=== PATIENT | female | born 2000 | race Caucasian/White ===

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

== ENCOUNTER 2022-01-07 11:24 | Outpatient (RCR) | payer BC, SELFPAY ==
--- NOTE | 2022-01-07 09:00 | BH.SGPN.GN ---
Behaviors/Verbalizations/Mental Status: []Pt alert and oriented, casually dressed and groomed. Eye contact good, motor activity appropriate, speech within normal limits. Affect, congruent. Mood, anxious. Thoughts linear, logical, no signs of hallucinations or delusions. Pt completed the CSSR-S this morning, denies active SI. client Response/Progress/Benefit: P[]Pt responded well to session, engaged and interacting with peers. Pt's first day of IOP tx and pt reports feeling anxious. Pt receptive to feedback from peers on advice about the program and encouragement. Pt stated she has been struggling with her mental health for a while now and she is ready to feel better. Pt reports she wants to work on reducing depression and anxiety and finding coping skills. Pt stated I overthink everything and pt wants to be able to live her life without having such negative thinking. Appeared to benefit from group support and feedback. Will continue IOP tx to prevent decompensation, gain healthy coping skills, and maintain safety. Narrative Note: []
--- NOTE | 2022-01-07 10:10 | BH.SGPN.GN ---
Behaviors/Verbalizations/Mental Status: [] Eye contact is good. Motor activity is appropriate. Appearance is disheveled. Speech is Appropriate. Mood is anxious. Affect is congruent. Thoughts are linear and logical. No evidence of psychosis. Client Response/Progress/Benefit: [] Pt was an active participant in group discussion and activity. Attentive during psychoeducation on social stigma vs self-stigma. Pt was actively involved in interactive discussion on the question of What impacts how we define and view ourselves? Pt along with peers were able to identify several aspects that impact how we view ourselves which include; society, past experiences, upbringing, guilt over past actions, shame, what we tell ourselves, actions, and our roles (i.e. mother, father, unemployed, crazy). Pt also participated in identifying examples of social stigma for mental health illness which included too sensitive, looking for attention, overly emotional, psycho, crazy, just an excuse, not working hard enough, lazy, mental health is not real, just a pessimist, and mental health can just be turned off. Benefited from increased awareness of how mental health stigma can impact individuals and treatment. Plan is to continue in IOP to maintain safety, prevent decompensation, and stabilize mood. Narrative Note: []
--- NOTE | 2022-01-07 11:10 | BH.SGPN.GN ---
Behaviors/Verbalizations/Mental Status: []Client alert and oriented, casually dressed and groomed. Eye contact fair. Motor activity appropriate. Speech within normal limits. Affect constricted, mood depressed and anxious. Thoughts linear, logical, no signs of hallucinations or delusions. Client Response/Progress/Benefit: []Client engaged participant AEB client participating in the activity, providing some input during small group discussion, and listening attentively to others. Client appeared to connect with discussion about what stigma has kept her from doing. Group brainstormed strategies to combat social and perceived stigma. Client shared one thing she can personally do to combat stigma is to remind self to ask self if what others are saying is a fact or an opinion. Client stated she wants to believe in herself more instead of jumping to believing what others have to say. Appeared to benefit from increasing awareness of strategies to combat stigma. Will continue IOP tx to improve daily functioning, increase healthy coping and prevent decompensation.
--- NOTE | 2022-01-07 14:00 | BH.COMM_ITS ---
Communication Note - Communication with Client Communication Note: Completed initial paperwork. No significant changes since pre-admission screening. Completed [facility]. Denies SI with plan or intent in the past 4 week. Case discussed with Dr. Olmedo AT 902A with plan to admit to [facility] level of care with dx of F33.2
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
--- NOTE | 2022-01-09 11:10 | BH.SGPN.GN ---
Behaviors/Verbalizations/Mental Status: []Client alert and oriented, disheveled appearance. Eye contact good. Motor activity appropriate. Speech interrupting at times and engaging in side conversations. Affect constricted, mood dysthymic. Thoughts linear, logical, no signs of hallucinations or delusions. Client Response/Progress/Benefit: []Client engaged participant AEB client taking notes during discussion. Attentive throughout group discussion on the various areas of self-care, benefits, and types of self-care activities for each area. Client completed worksheet which identified current self-care practices and what self-care activities client wants to start using. Client selected emotional self-care as the area of self-care client would like to improve. Client plans to do this by making a playlist for her moods and using opposite action when she wants to use unhealthy skills. Client reports she is doing well with psychological self-care. Appeared to benefit from completing the self-care evaluation and gaining insights into current self-care practices, as well as identifying areas in which she would like to improve upon. Will continue IOP tx to prevent decompensation, gain healthy coping skills, and improve daily functioning. Narrative Note: []
[2022-01-09 11:21] VITALS: BP 113/77; PULSE 71
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
--- NOTE | 2022-01-09 12:39 | BH.DR.ITP ---
Initial Treatment Plan Patient Information Visit Information: ADMISSION DATE: EXPECTED LOS: 4-6 weeks Problems/Symptoms Problem #1:: Mood instability Symptom:: Depression, crying, sadness, isolation, low energy, fatigue, hopelessness, worthlessness Symptom:: Mood fluctuations with occasional grandiose thinking and bursts of energy and decreased sleep without fatigue, impulsive it he Problem #2:: Anxiety Symptom:: Worry, rumination, panic attacks, flashbacks, avoidance, dissociation
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
--- NOTE | 2022-01-11 10:15 | BH.SGPN.GN ---
Behaviors/Verbalizations/Mental Status: []Client alert and oriented, casually dressed and groomed. Eye contact good. Motor activity appropriate. Speech within normal limits. Affect constricted, mood anxious and depressed. Thoughts linear, logical, no signs of hallucinations or delusions. Client Response/Progress/Benefit: []Pt was an active participant in group discussion and activity. Attentive during psychoeducation on coping skills and gave examples of unhealthy coping skills shut as creating arguments on purpose, shutting down, and self-sabotage by pushing supports away. Benefited from increased understanding of unhealthy coping skills and the need for developing healthy interna and external coping skills. Pt will continue in IOP to prevent decompensation, stabilize mood, and improve daily functioning. Narrative Note: []
--- NOTE | 2022-01-11 15:45 | BH.MDN ---
Multi-Disciplinary Note - Note 60-min Individual Time Started:: 11:05 Date: 01/11/22 Time Stopped:: 12:00
--- NOTE | 2022-01-11 15:46 | BH.MTP_ITS ---
Master Treatment Plan - Patient Information Program Physician:: Dr. Olmedo Primary Therapist:: Cleo Hernandez, [facility] - Psychiatric Diagnoses Psychiatric Diagnoses:: 1. Bipolar 1 disorder, most recent episode mixed, moderate (F 31.62). 2. PTSD. 3. Borderline personality disorder Diagnosis Code(s):: F31.62 - Estimated LOS Estimated LOS (in weeks):: 6 Problem/Goal #1 - Problem/Goal #1 Stated Goal:: Client will increase mood stability and decrease depressive symptoms, hopelessness and worthlessness. Description of Barriers: Pt's low motivation, difficulty getting up in the mornings could prevent her from attending sessions consistently, distorted thoughts, limited support, and low energy could all be potential barriers to treatment. Functional Impact: The patient is a 21-year-old single female with a history of bipolar disorder, depression and anxiety. Pt?s symptoms have been worsening for the past few months. Pt endorses depressed mood, racing thoughts, increased crying, hyperventilation, self-harm via punching self, and irritable. Pt has hx of 5-6 suicide attempts in the past by overdose. Pt reports her suicidal ideation is mostly passive but if she is alone her SI gets more intense. Pt reports hx of what she feels are manic episodes which she describes lasting from 1-3 weeks and involved grandiose thoughts, decreased need to sleep but lots of energy. Pt impulsively moved to [place] 7 months ago and recently moved back to [place]. - Objectives Objective #1 Stated Objective: Client will learn and utilize 2-3 healthy coping strategies to better manage depressive and mood symptoms as shown by reduced DSM-5 scores. Interventions: Therapist and group therapy will teach client various coping skills to manage symptoms and give tangible resources to use to regulate emotions. Therapist will use cognitive restructuring techniques and help client gain awareness of negative thoughts that reinforce depressive cycles. Discharge Criteria: Pt will have met this objective when reports consistent utilization of at least 2 healthy coping skills that helps manage pt's mood. Target Date: 02/18/22 Review Date: 02/04/22 Objective #2 Stated Objective: Pt will show improved mood stabilization AEB pt?s depression and lucero scores on the DSM 5 cross-cutting measure and improve pt?s daily functioning. Interventions: Through groups and individual therapy, pt will be provided with education on cognitive distortions, mistaken beliefs, and identifying and combating negative self-talk. Therapist will assist pt with getting back into the activities she once enjoyed as well as increasing healthy coping strategies. Discharge Criteria: Pt will have met this goal when pt?s score on the DSM 5 cross cutting measure for depression and lucero has been decreased and per pt?s report daily functioning has improved. Target Date: 02/18/22 Review Date: 02/04/22 Problem/Goal #2 - Problem/Goal #2 Stated Goal:: Stabilize anxiety level while increasing ability to function on daily basis. Description of Barriers: Pt's low motivation, difficulty getting up in the mornings could prevent her from attending sessions consistently, distorted thoughts, limited support, and low energy could all be potential barriers to treatment. Functional Impact: The patient is a 21-year-old single female with a history of bipolar disorder, depression and anxiety. Pt?s symptoms have been worsening for the past few months. Pt endorses depressed mood, racing thoughts, increased crying, hyperventilation, self-harm via punching self, and irritable. Pt has hx of 5-6 suicide attempts in the past by overdose. Pt reports her suicidal ideation is mostly passive but if she is alone her SI gets more intense. Pt reports hx of what she feels are manic episodes which she describes lasting from 1-3 weeks and involved grandiose thoughts, decreased need to sleep but lots of energy. Pt impulsively moved to [place] 7 months ago and recently moved back to [place]. - Objectives Objective #1 Stated Objective: Client will learn and implement 2-3 calming skills to reduce overall anxiety and manage anxiety symptoms.?? Interventions: Therapist and group sessions will teach calming/relaxation skills and how to apply these skills to everyday life. Discharge Criteria: Client will have achieved this goal when can verbalize at least 2 calming strategies and have practiced techniques to help reduce anxiety. Target Date: 02/18/22 Review Date: 02/04/22 Objective #2 Stated Objective: Pt will decrease anxious symptoms AEB pt?s score on the DSM 5 cross-cutting measure improve pt?s daily functioning. Interventions: Through groups and individual therapy, pt will be provided education about anxiety?s impact on body and common physiological reaction to anxiety. Therapist will teach pt appropriate breathing techniques and build healthy coping skills to manage daily anxieties. Discharge Criteria: Pt will have met this goal when pt?s score on the DSM 5 cross cutting measure for anxiety has been decreased and per pt?s report daily functioning has improved. Target Date: 02/18/22 Review Date: 02/04/22
--- NOTE | 2022-01-17 09:00 | BH.SGPN.GN ---
Behaviors/Verbalizations/Mental Status: [] Eye contact is good. Motor activity is appropriate. Appearance is disheveled. Speech is Appropriate. Mood is depressed. Affect is flat. Thoughts are linear and logical. No evidence of psychosis. Reviewed daily check in sheet and no reports of suicidal ideations or intent. Client Response/Progress/Benefit: [] Pt participated at times during the group discussion. She appeared drowsy however was engaged in group discussions. Daily symptom tracker notes 2/ for depression and anxiety. Emotion for today is calm. Primary stressor is I can't find a job. Reports that she has applied to numerous local employers however she has not received a call back. Group provided some feedback. Pt admits that she missed IOP on Friday and Friday due to limited motivation, low energy, and isolation/depression. She believes that despite poor attendance she continues to get a lot from this program. Admits that she thought that groups were weird however she find that support and hearing other people talk about their struggles has been very helpful. According to pt her BF remarked that she seems much better since she started. She stayed up late last evening which may explain her drowsiness this AM. She did some thinking and had some positive insight regarding her past and trauma. Group discussed how looking back to the past to learn is way different that looking back to rumination. Progress noted per pt report. Benefited from group support, encouragement, and feedback. Will continue in IOP to maintain safety, prevent decompensation, increase healthy coping, and improve functioning. Narrative Note: []
--- NOTE | 2022-01-30 10:17 | BH.COMM ---
Communication Note - Communication with Client Communication Note: Pt did not show today. Was scheduled to see psychiatrist.
--- NOTE | 2022-02-01 10:14 | BH.COMM ---
Communication Note - Communication with Client Communication Note: Did not show for IOP this AM was scheduled to see psychiatry
== END 2022-01-17 23:59 | disposition home or self-care (01) ==
LOC: BHIOP 11:24
PROVIDERS: Referring Provider Psychiatry & Neurology Psychiatry; Visit Provider Psychiatry & Neurology Psychiatry
DX: F31.62 Bipolar disorder, current episode mixed, moderate (principal); F60.3 Borderline personality disorder; F43.10 Post-traumatic stress disorder, unspecified; Z79.899 Other long term (current) drug therapy
CPT/HCPCS: S9480; 90837; 90853

== ENCOUNTER 2022-01-18 08:19 | Outpatient (RCR) | payer BC, SELFPAY ==
[2022-01-18 00:53] VITALS: BP 113/77; PULSE 71
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
--- NOTE | 2022-01-21 10:13 | BH.SGPN.GN ---
Behaviors/Verbalizations/Mental Status: []Client alert and oriented, casually dressed and groomed. Eye contact good. Motor activity appropriate. Speech within normal limits. Affect congruent, mood dysthymic. Thoughts linear, logical, no signs of hallucinations or delusions. Client Response/Progress/Benefit: []Pt engaged throughout AEB taking notes, listening attentively, and providing some input throughout. Attentive during psychoeducation and discussed the importance of goal-setting with the group. Pt indicated that goals ?help us gain new skills and remind us of what we are capable of?. Group identified potential benefits of having goals to include: they motivate, increase self-confidence, provide a sense of accomplishment, help you begin to create healthier habits, and provide a sense of purpose. Group also worked together to identify barriers to goal-setting which included; fear of failure, lack of motivation, depression, ?I don?t care attitude?, and lack of support from others. Pt identified personal barriers to include fear of the unknown, negative self-talk, and lack of motivation. Benefited from increased awareness of benefits and barriers to goal-setting. Pt will continue in IOP to prevent decompensation, increase healthy coping and further stabilize mood, as well as further improve daily functioning. Narrative Note: []
--- NOTE | 2022-01-21 11:10 | BH.SGPN.GN ---
Behaviors/Verbalizations/Mental Status: []Client alert and oriented, casually dressed and groomed. Eye contact good. Motor activity appropriate. Speech within normal limits. Affect constricted, mood dysthymic. Thoughts linear, logical, no signs of hallucinations or delusions. Client Response/Progress/Benefit: []Pt was an active participant in group discussions and activities. Engaged in activity. Pt identified a SMART goal for the next week is to: go to sleep before 2am on days before IOP. Pt reported this would benefit her by showing up to counseling on time. Identified forgetfulness and apathy as potential barriers to completing this goal. Pt able to identify several solutions, such as setting an alarm, using post it notes, and reminding self of consequences, that can help overcome identified barriers. Benefited from group by being able to utilize SMART educate to create a goal. Pt to continue IOP to improve daily functioning, increase consistent attendance and prevent decompensation.
--- NOTE | 2022-01-22 10:53 | BH.COMM ---
Communication Note - Communication with Client Communication Note: Pt no showed/no called IOP session today. Was scheduled to see IOP individual therapist today. Pt was aware therapist would be out of rest of week and could not see her individually besides today.
--- NOTE | 2022-01-23 10:30 | BH.COMM ---
Communication Note - Communication with Client Communication Note: Did not show for IOP today. Was scheduled to see psychiatry.
--- NOTE | 2022-01-24 09:00 | BH.SGPN.GN ---
Behaviors/Verbalizations/Mental Status: [] Eye contact is good. Motor activity is appropriate. Appearance is casual. Speech is Appropriate. Mood is anxious. Affect is congruent. Thoughts are linear and logical. No evidence of psychosis. Reviewed daily check in sheet and no reports of suicidal ideations or intent. Client Response/Progress/Benefit: [] Pt participated at times during group discussion. Attentive. Provided appropriate feedback. Daily symptom tracker notes 25 for anxiety and /5 for depression. Emotion for today is optimistic and calm. Mental health win is that she finally got a job. States this has helped reduced stress about having an income. Believes that her mood continues to improve I'm getting better. Decreased ruminations. I'm not over-thinking everything. Shared that in the past she would obsess over events, feeling, and other people however she has managed to decreased this significantly. She appears to be utilizing thoughts challenging, reframing, and affirmations to wardrobe manager ruminations. Decreased crying spells. She again states that her BF reports he also has noticed a difference. Progress noted per pt report. Benefited from group support, encouragement, and feedback. Will continue in IOP to maintain safety, increase healthy coping, and stabilize mood. Narrative Note: []
--- NOTE | 2022-01-24 10:11 | BH.SGPN.GN ---
Behaviors/Verbalizations/Mental Status: []Client alert and oriented, casual dress, hygiene tended to. Eye contact good. Motor activity WNL. Speech appropriate rate and tone. Affect congruent, mood anxious and dysthymic. Thoughts linear, logical, no signs of hallucinations or delusions. Client Response/Progress/Benefit: [] Pt engaged in session as evidenced by pt listening to others and providing input throughout. Pt stated Problem-solving skills can help to improve relationships by preventing unnecessary conflict?. Pt reported her avoidance can be a barrier to addressing her problems directly. Pt recognized this has prolonged her suffering and made it difficult to address problems at times. Pt worked cooperatively with peers during problem solving activity, able to work through problem by using A,B,C,D,E problem solving method. Pt seemed to benefit from learning about problem solving method and rehearsing problem solving skills in the moment. Pt to continue IOP level of care to continue to promote mood stability, increase utilization of healthy coping skills, and prevent decompensation. Narrative Note: []
--- NOTE | 2022-01-25 10:15 | BH.SGPN.GN ---
Behaviors/Verbalizations/Mental Status: []Eye contact is good. Motor activity is appropriate. Appearance is casual and grooming tended to. Speech is Appropriate. Mood is dysthymic. Affect is congruent. Thoughts are linear and logical. No evidence of psychosis Client Response/Progress/Benefit: []Pt receptive of session, actively engaged throughout AEB maintaining attention, providing input and examples to discussion. Appeared to connect with group topic of cognitive distortions and the impact of thought patterns on mental health, coping behaviors, and relationships. Reflected that her own distorted thoughts have led to limiting herself by not trying new thinking or taking opportunities when they are presented. Discussed with group the influence of media, environment, past experiences and current mood on vulnerability to distorted thought patterns. Shared how her own learned behaviors have reinforced negative beliefs about others intentions. Appeared to benefit from gaining insight on distorted thinking patterns and influence of distortions on maintaining unhealthy maintenance cycles. Progress remains variable as pt continues to struggle with consistent attendance. Recommended continued IOP treatment to improve mood stability, continue to promote healthy change behaviors, and prevent decompensation. Narrative Note: []
--- NOTE | 2022-01-30 17:54 | BH.TPR ---
Treatment Plan Review Date of Treatment Plan Review:: 01/30/22
--- NOTE | 2022-01-31 10:05 | BH.SGPN.GN ---
Behaviors/Verbalizations/Mental Status: [] Client alert and oriented, casually dressed and groomed. Eye contact good. Motor activity appropriate. Speech within normal limits. Affect congruent, mood euthymic. Thoughts linear, logical, no signs of hallucinations or delusions. Client Response/Progress/Benefit: []Client responded well to session AEB listening attentively to others. Client was engaged throughout group discussion defining boundaries and why having healthy boundaries is important. Client appeared connected to psychoeducation on the types of boundaries, including physical, emotional, and intellectual. Client was an active listener throughout group sharing personal examples of each type of boundary. Client appeared to benefit from increased knowledge of the types of boundaries and increased self-awareness of personal boundaries. Will continue IOP treatment to prevent decompensation and increase application of healthy coping skills to improve daily functioning. Narrative Note: []
--- NOTE | 2022-01-31 10:52 | BH.COMM ---
Communication Note - Communication with Client Communication Note: Client no showed/no called IOP session today.
--- NOTE | 2022-01-31 14:16 | BH.COMM ---
Communication Note - Communication with Client Communication Note: Pt had no called/no showed for session this morning, but showed up later near the end of the last group session of the day. Pt was tearful and requested to speak to a therapist. Pt was not suicidal, but pt was worried that she was going to engage in self-harming behaviors. Triggered by her boyfriend coming home later than expected last night. Pt reports she worries constantly that her boyfriend is cheating. Pt got drunk last night and reports blacking out, but able to recall most of last night. Pt stated feeling overwhelmed by her racing thoughts and constant anxiety which makes pt not want to be alive. Denies any SI and shared I like being alive. Pt shared when she gets this way pt also feels like everyone is out to get me. Pt met with this therapist and pt's IOP therapist. Pt able to calm down and deescalate after talking with therapists. Therapists encouraged pt to increase attendance at IOP and to consider medication trials to help with racing thoughts, anxiety, and paranoia. Pt willing to develop a plan for today to manage emotions and prevent self-harm. Pt will attend IOP tx tomorrow.
--- NOTE | 2022-02-01 10:15 | BH.SGPN.GN ---
Behaviors/Verbalizations/Mental Status: []Eye contact is good. Motor activity is appropriate. Appearance is casual. Speech is Appropriate. Mood is dysthymic. Affect is constricted. Thoughts are linear and logical. No evidence of psychosis. Client Response/Progress/Benefit: []Pt's engagement was poor in beginning of group session AEB pt laying head down on table and appearing to have her eyes closed. Pt showed increased engagement during the reflection activity in which clients were asked to draw pictures depicting their current and desired realities. Pt shared in current reality she feels lost in the forest with thorns and crows surrounding her. Client stated this represents herself letting feelings of hopelessness take over. Client stated she did not have time to create her desired reality. Pt progress could be hindered by her lack of engagement in group sessions and erratic IOP attendance. Pt to continue IOP to improve daily functioning, increase consistent attendance to therapy and prevent decompensation.
--- NOTE | 2022-02-01 15:03 | BH.MDN_ITS ---
Multi-Disciplinary Note - Note 45-min Individual Time Started:: 09:08 Date: 02/01/22 Purpose of session/treatment goals addressed:: Purpose of session was to address goal 2 from MTP. Eye Contact:: Poor Motor Activity:: Restless Appearance:: Disheveled Speech:: Rambling Mood:: Anxious Affect:: Labile Thoughts:: Racing, No evidence of hallucinations/delusions noted Staff Interventions:: motivational interviewing, psychoeducation on: - anxiety, CBT techniques, rapport building, goal setting, taught coping skills - belly breathing, sitting with uncomfortable emotions to stop reassurance seeking Client Response:: Pt reported yesterday we was extremely anxious all day. Pt stated she continued to have a tightening in her chest but was able to refrain from self-harming. Pt reported she did reach out to several different support people throughout yesterday. Pt stated one of her friends provided a lot of positive insight and challenge to pt's distorted thoughts. Pt reported today she is still anxious but nothing like yesterday. Pt reported she did have a conversation with her boyfriend last night about what happened the night before. Pt stated her boyfriend was very supportive and understanding. Pt reported she knows she needs to work on being okay with being alone because she doesn't want to have another meltdown. Pt stated when her boyfriend is gone she has a hard time managing her racing thoughts because she will start to think he is cheating on her. Pt reported when her chest is tight she feels like it is telling her that her boyfriend is cheating. Pt stated when she has ringing in her ears she feels like it means her friends are talking bad about her. Pt reported she often has experiences in which she believes there is a deeper meaning behind this situations. Pt stated logically she knows this can't be true but in the moment she can't get her brain to stop racing to those irrational conclusions. Pt responded well to education about anxiety and what behaviors can make anxiety worse. Pt stated she engages in reassurance seeking everyday. Pt reported she often will ask her boyfriend if he is mad at her, if he loves her or if he is cheating on her. Pt stated she knows seeking reassurance from her boyfriend constantly could push him away from her. Pt reported she would be willing to work on decreasing how often she seeks reassurance from her boyfriend by using belly breathing or grounding skills. Risks/Concerns:: Pt reports passive thoughts of and recent self-harm thoughts. Pt denies active suicidal ideation, plan or intention to date. pt feels able to maintain safety. future focused. Progress Toward Goals/Plan:: Progress limited which could be attributed to pt's inconsistent IOP attendance. Pt's poor night schedule/sleep routine seeks to be barrier to pt getting up in the morning to make it to IOP. Pt continuing to struggle with severe anxiety with racing thoughts, panic attacks, and difficulty being alone. Pt responded well to discussion with therapist about making it to IOP more consistently, recognizes won't see progress if doesn't make it to group. Pt to continue IOP to increase healthy coping skills, improve daily fun ctioning and prevent decompensation. Time Stopped:: 09:58
--- NOTE | 2022-02-04 14:11 | BH.COMM ---
Communication Note - Communication with Client Communication Note: Did not show for IOP today.
--- NOTE | 2022-02-06 09:00 | BH.SGPN.GN ---
Behaviors/Verbalizations/Mental Status: []Pt alert and oriented, casually dressed and groomed. Eye contact good. Motor activity appropriate. Speech within normal limits. Affect constricted, mood anxious. Thoughts linear, logical, no signs of hallucinations or delusions. Reviewed pt?s symptom tracker, no risk for suicidal ideation, plan, or intent as of 02/06/22. Client Response/Progress/Benefit: []Pt responded well to session, connecting with peers. Pt reports feeling scattered this morning as pt continues to experience high anxiety. Pt is also stressed because she meets with the IOP psychiatrist today and pt is considering taking medications. The group provided positive feedback about taking medications which pt appeared to benefit from. Pt's mental health wins today include making it to group today and going for walks almost daily. Attendance continues to be an issue/barrier to pt's treatment and progress. Will continue IOP tx to prevent decompensation, improve overall functioning, and increase the use of healthy coping skills. Narrative Note: []
--- NOTE | 2022-02-06 11:10 | BH.SGPN.GN ---
Behaviors/Verbalizations/Mental Status: []Client alert and oriented, casually dressed and appropriately groomed. Eye contact good. Motor activity appropriate. Speech WNL. Affect constricted, mood dysthymic. Thoughts linear, logical, no signs of hallucinations or delusions. Client Response/Progress/Benefit: []Client responded well to session AEB client listening attentively to others and providing input during group discussion on the pay offs and costs of the different communication styles. Client stated with her family she most often uses aggressive communication because that is how her family has always communicated. Client reported she knows aggressive communication only causes more conflict and issues within her family. Client reported she tries to be more assertive with her boyfriend but at times reverts to passive-aggressive communication. Attentive during psychoeducation on interpersonal DBT skill FRANK. Client seemed to benefit from increasing awareness of healthy strategies to improve communication. Client will continue to increase consistent use of healthy coping, stabilize moods, and prevent decompensation.
--- NOTE | 2022-02-06 11:50 | PCM.BH.PN ---
Progress Note Progress Note: History of Present Illness/Interim History: [] The patient is a 21-year-old female with a history of bipolar disorder and depression who is seen in follow-up at the [facility] IOP program. I last saw the patient 3 weeks ago and at that time I recommended medication for her bipolar disorder and depression and anxiety. The patient has had bad experiences in the past with taking medications and so was reluctant to do this but agreed to go home and think about it. The patient states that she may be ready to start medication now. Her symptoms remain very similar and no better than they were at the last visit several weeks ago. She is still not working. Her anxiety remains severe and at times she has chest tightness and almost has a panic attack level of anxiety. She drank alcohol 1 week ago and the next day she got very depressed and suicidal but this has resolved. When she gets severely anxious she is less able to eat but her weight has been stable and she is 133 pounds and 5 foot 5 inches tall. She denies any self-harm since 3 months ago and denies punching herself in the head since 5 weeks ago. She denies any passive thoughts of , suicidal ideation, homicidal ideation, hallucinations or delusions. She denies any symptoms of lucero. She is sleeping about 10 hours a day but she sleeps from 3 AM until 2 PM usually. She likes that schedule but it does make it hard to attend IOP. She says when she has to go to IOP she tries to go to bed earlier and get up. The patient states that she only wants a medication to help her anxiety because she does not like to take medications. Current Psychiatric Medications: [] No medications since 2019. Mental Status Examination: [] The patient is a 21-year-old female with dark brown hair with red highlights in the fronts. She is wearing a mask due to the pandemic but has 2 nose piercings that are apparent when her mask falls down. She is casually dressed and groomed with good hygiene. Eye contact is fair and speech is normal rate and rhythm and fluent with no pressure. She has no psychomotor agitation or retardation. Mood is mildly depressed overall. Affect is full and normal. Thought process is goal-directed and organized. Thought content: There is no evidence of passive thoughts of , suicidal ideation, homicidal ideation, hallucinations or delusions. Judgment is intact. Impulsivity is high. Insight is limited. Diagnoses: [] 1. Bipolar 1 disorder, most recent episode mixed, moderate (F31.62) 2. PTSD 3. Borderline personality disorder 4. Primary support, financial and work issues Plan: [] The patient will continue the IOP program at [facility] as the structure, support, education and group therapy will hopefully prevent worsening of the patient's symptoms which might require hospitalization. She felt safe during the interview and if it anytime she does not feel safe she will let us know or go to the emergency room. The risk, options and possible complications of the medications were discussed with the patient and she understands and accepts these. The patient reluctantly agrees to try starting Latuda to help with her mood stabilization and anxiety and depression. She understands it needs to be taken with food or for 100-calorie snack or does not get absorbed well. She can will continue to avoid any energy drinks. She will continue to follow-up with her outpatient providers and I will see the patient in follow-up in 1 week.
--- NOTE | 2022-02-07 15:59 | BH.COMM ---
Communication Note - Communication with Client Communication Note: No call/ No show for today. Second this week.
--- NOTE | 2022-02-12 13:37 | BH.COMM ---
Communication Note - Communication with Client Communication Note: No call/no show. Reached out to patient who states she slept in. Informed patient that program psychiatrist requested to meet with patient tomorrow to discuss new medication which was started last week. Pt reports she never started the med and cannot make it tomorrow. To date patient has no call/no showed 7 times since starting the program and only attended 6 times. She did not show 3 out of 4 days in the last week. She has repeatedly missed appointments with psychiatry and is non-compliant with medication recommendations. While in the program her participation in minimal. The treatment team has shown patience with inconsistent attendance as we felt that medication intervention would benefit pt's mental health. Due to refusing to follow program psychiatrist's medication recommendations, poor engagement, and poor attendance pt will be discharged. Spoke with patient over the phone she admitted I don't really want to come back anyway. She states I don't really want any medications either. She was given referrals to local mental health traditional outpatient providers.
--- NOTE | 2022-02-12 14:05 | BH.DS ---
Discharge Summary - Demographics Date of Admission:: 01/07/22 Discharge Date: 02/12/22 Presenting Problems at Admission:: Pt is a 21 y/o F with hx of several psychiatric admissions. Pt is a poor historian reporting that she had been diagnoses with Bipolar and Schizoaffective in the past, however has refused to take medications. Last psychiatrist admission was in 2019. At admission pt reported mental health decompensation for the past several months. States I've been trying to get mental health treatment for months. Endorses increased sleep, poor appetite, low energy, low motivation, racing thoughts, crying spells, isolation, anhedonia, and hopelessness. Denied active SI at admission. Hx of 5 or 6 previous suicide attempts mostly by taking pills with most recent in 2019. Long standing fleeting SI with methods. Hx of self-injurious behaviors with last harm in 10/2021. Panic attacks daily. Poor focus, concentration, and memory. Erratic mood swings. Poor emotion regulation and coping skills. I can't control my emotions and thoughts. Intrusive thoughts which are at times irrational. Denied HI. Endorses auditory hallucinations people telling me negative things. Reports manic or hypomanic episodes which she describes as energy bursts where she thinks very highly of myself. Unemployed to due to mental health symptoms. Discharge Diagnoses:: 1. Bipolar 1 disorder, most recent episode mixed, moderate (F31.62). 2. PTSD. 3. Borderline personality disorder Reason for Discharge:: Inconsistent attendance (refer above). She has repeatedly missed appointments with program psychiatrist and is non-compliant with medication recommendations. While in the program her participation was minimal. The treatment team has shown patience with inconsistent attendance as we felt that medication intervention would benefit pt's mental health. Due to refusing to follow program psychiatrist's medication recommendations, poor engagement, and poor attendance pt will be discharged. Spoke with patient over the phone she admitted I don't really want to come back anyway. She states I don't really want any medications either - Treatment Progress During Treatment & Response: Limited progress due to inconsistent attendance. Pt did not show for 7 scheduled IOP sessions since 01/07/22. Ultimately she only attended 6 IOP sessions. Her engagement was minimal when she was present. Initially reported significant benefit to group counseling, however in the past few weeks her symptoms have worsened. She missed several scheduled meeting with program psychiatrist and has refused any medication interventions which were strongly encouraged due to dx of Bipolar. Limited motivation. Issues Still to be Addressed:: Depression, anxiety, irrational thoughts, paranoia, racing thoughts, erratic mood swings, sleeping to cope, fleeting SI with methods, self-injurious behaviors, hx of hallucinations. Discharge Recommendations/Instructions:: Pt was verbally given several local mental health providers including; [place] [id number], [facility], [facility], and [facility]. Encouraged her to follow up with both counseling and psychiatry. Discharge Handout: Complete Discharge Handout with client on aftercare options and continuity of care.
== END 2022-02-12 15:11 | disposition home or self-care (01) ==
LOC: BHIOP 08:19
PROVIDERS: Referring Provider Psychiatry & Neurology Psychiatry; Visit Provider Psychiatry & Neurology Psychiatry
DX: F31.62 Bipolar disorder, current episode mixed, moderate (principal); F41.0 Panic disorder [episodic paroxysmal anxiety]; F60.3 Borderline personality disorder
CPT/HCPCS: S9480; 90834; 90853